=== PATIENT | male | born 1975 | race Two or more races ===

== ENCOUNTER 2019-04-03 18:42 | Emergency (ER) | payer SELFPAY ==
[2019-04-03 18:49] VITALS: BP 130/81; PULSE 78; TEMP 98.1; BMI 25.0
--- NOTE | 2019-04-03 19:52 | PDOC ---
History of Present Illness - General Chief Complaint: Abscess Boil Stated Complaint: SWELLING ON CHEST Time Seen by Provider: 04/03/19 19:11 - History of Present Illness Initial Comments: 04/03/19 19:52 43-year-old male with worsening abscess about the chest. He states the abscess is been there for years however it has gotten progressively painful and swollen. No systemic symptoms. Past History - Past Medical History Allergies/Adverse Reactions: Allergies Allergy/AdvReac Type Severity Reaction Status Date / Time No Known Allergies Allergy Verified 04/03/19 18:44 Home Medications: Ambulatory Orders Cephalexin [Keflex] 500 mg PO QID #40 capsule 04/03/19 Ibuprofen [Motrin -] 600 mg PO TID #30 tablet 04/03/19 Sulfamethoxazole/Trimethoprim [Bactrim Ds -] 1 tab PO BID #14 tablet 04/03/19 COPD: No Other medical history: DENIES - Immunization History Immunization Up to Date: No - Suicide/Smoking/Psychosocial Hx Smoking History: Current every day smoker Information on smoking cessation initiated: No Hx Alcohol Use: No Drug/Substance Use Hx: No Review of Systems - Review of Systems Constitutional: No: Fever Integumentary: Yes: See HPI, Lesions *Physical Exam - Vital Signs Last Vital Signs Temp Pulse Resp BP Pulse Ox 98.1 F 78 18 130/81 99 04/03/19 18:45 04/03/19 18:45 04/03/19 18:45 04/03/19 18:45 04/03/19 18:45 - Physical Exam Comments: 04/03/19 19:51 HEAD: NC/AT EYES: Conjuntiva clear MS: Full ROM in all joints without edema NEUROLOGIC: No gross sensory or motor deficits, NVID SKIN: Normal color and temperature there is a large fluctuant abscess in the middle of the chest with warmth tenderness and mild surrounding erythema. There is a solitary firm mobile lymph node at the right axilla. Medical Decision Making - Medical Decision Making 04/03/19 19:50 Under aseptic technique 6 mL of 1% lidocaine without epinephrine was introduced circumferentially around the abscess. After appropriate anesthesia the abscess was again prepped aseptically subcentimeter incision was made at the most fluctuant area the area was drained and deloculated and packed with iodoform. A dry sterile dressing was placed. This was tolerated well. Patient was given specific instructions on wound care and went to follow-up. *DC/Admit/Observation/Transfer Diagnosis at time of Disposition: Abscess - Discharge Dispostion Disposition: HOME Condition at time of disposition: Stable Decision to Admit order: No - Referrals Referrals: ON STAFF,NOT [Primary Care Provider] - Felix Kirk MD [Staff Physician] - - Patient Instructions Printed Discharge Instructions: DI for Incision and Drainage of a Skin Abscess Additional Instructions: Return to the emergency room in 48 hours for packing removal wound evaluation and further treatment. Please take the antibiotics as directed and finish the entire course of both antibiotics. Motrin was sent here pharmacy for pain one tablet 3 times a day with meals. Discontinue the medication if it bothers her stomach. Do not take any other anti-inflammatories such as Advil Motrin Aleve or ibuprofen while on the prescription strength Motrin. May also take Tylenol. Keep the area clean and dry for the next 48 hours and do not get it wet. Return to the emergency room sooner if problems develop. You also have the option of following up with general surgery in 1-2 days for further evaluation and treatment options. - Post Discharge Activity
== END 2019-04-03 20:03 | disposition home or self-care (01) ==
LOC: JERFT 18:42
PROC: 0J960ZZ Drainage of Chest Subcutaneous Tissue and Fascia, Open Approach (ICD-10-PCS; principal; 2019-04-03)
DX: L02.213 Cutaneous abscess of chest wall (principal)
CPT/HCPCS: 87070; 87076; 87205; 99282-25

== ENCOUNTER 2019-04-05 18:34 | Emergency (ER) | payer SELFPAY ==
--- NOTE | 2019-04-05 18:55 | PDOC ---
Rapid Medical Evaluation Chief Complaint: Revisit,Wound Recheck Time Seen by Provider: 04/05/19 18:53 Medical Evaluation: Allergies Allergy/AdvReac Type Severity Reaction Status Date / Time No Known Allergies Allergy Verified 04/03/19 18:44 04/05/19 18:54 I have performed a brief in-person evaluation of this patient. The patient presents with a chief complaint of:Follow-up for chest wall abscess. Patient seen 2 days ago for I&D. Denies fever, chills or pain Pertinent physical exam findings: A&O x 3 I have ordered the following: nothing The patient will proceed to the ED for further evaluation. 04/05/19 18:55 04/05/19 18:56 Discharge Disposition - Diagnosis Abscess - Discharge Dispostion Condition at time of disposition: Stable - Referrals - Patient Instructions - Post Discharge Activity
[2019-04-05 18:56] VITALS: BP 117/68; PULSE 70; TEMP 98.3; BMI 25.0
--- NOTE | 2019-04-05 19:26 | PDOC ---
Suture Removal/Wound Check HPI - History of Present Illness Chief Complaint: Revisit,Wound Recheck Stated Complaint: FOLLOW UP Time Seen by Provider: 04/05/19 18:53 History Source: Yes: Patient Exam Limitations: Yes: No Limitations Treated at: [facility] ED - Previous ED Treatment Type of procedure performed on last visit: Yes: I&D of Abscess Tetanus Immunization: Yes: Up to Date Antibiotics Prescribed: Yes (bactrim, keflex) Past History - Travel Traveled outside of the country in the last 30 days: No Close contact w/someone who was outside of country & ill: No - Past Medical History Allergies/Adverse Reactions: Allergies Allergy/AdvReac Type Severity Reaction Status Date / Time No Known Allergies Allergy Verified 04/05/19 19:06 Home Medications: Ambulatory Orders Cephalexin [Keflex] 500 mg PO QID #40 capsule 04/03/19 Ibuprofen [Motrin -] 600 mg PO TID #30 tablet 04/03/19 Sulfamethoxazole/Trimethoprim [Bactrim Ds -] 1 tab PO BID #14 tablet 04/03/19 COPD: No - Immunization History Immunization Up to Date: No - Suicide/Smoking/Psychosocial Hx Smoking History: Current every day smoker Number of Cigarettes Smoked Daily: 6 Information on smoking cessation initiated: No Hx Alcohol Use: No Drug/Substance Use Hx: No Suture Removal/Wound Check PE - Physical Exam Laceration/Wound Check Symptoms: reports: Improved Location of Laceration/Wound: right: Chest *Review of Systems - Review of Systems Constitutional: No: Chills, Fever, Weakness Integumentary: No: Erythema, Pruritus, Rash All Other Systems: Reviewed and Negative *Physical Exam - Vital Signs Last Vital Signs Temp Pulse Resp BP Pulse Ox 98.3 F 70 16 117/68 98 04/05/19 18:54 04/05/19 18:54 04/05/19 18:54 04/05/19 18:54 04/05/19 18:54 - Physical Exam General Appearance: Yes: Nourished, Appropriately Dressed. No: Apparent Distress Integumentary: positive: Normal Color, Dry, Warm, Other (1 cm incision to the R chest wall with no associated drainage or redness.) Neurologic: positive: Fully Oriented, Alert, Normal Mood/Affect, Normal Response Medical Decision Making - Medical Decision Making 04/05/19 19:11 The patient is a 43 y/o M who presents to the ED For a wound check. Pt had an I& D performed to his r chest wall two days ago in our ED. He states that he hasn' t taken the dressing off. Denies fevers, chills, purulent drainage. A/P: Wound check On exam packing in place to the R chest wall Packing removed. No further drainage noted No associated erythema or tenderness D/C home with instructions to continue abx. I discussed the physical exam findings, ancillary test results and final diagnoses with the patient. I answered all of the patient's questions. The patient was satisfied with the care received and felt comfortable with the discharge plan and treatment plan. The Patient agrees to follow up with the primary care physician/specialist within 24-72 hours. Return precautions were given. *DC/Admit/Observation/Transfer Diagnosis at time of Disposition: Abscess, Wound check, abscess - Discharge Dispostion Disposition: HOME Condition at time of disposition: Stable Decision to Admit order: No - Referrals Referrals: Kelvin Lund MD [Staff Physician] - - Patient Instructions Printed Discharge Instructions: DI for Incision and Drainage of a Skin Abscess Additional Instructions: You had your packing removed today The abscess is healing well Continue the antibiotics as previously prescribed Follow up with your primary care doctor Return to the ER for fever, drainage from the site, or if you have any changes in your symptoms - Post Discharge Activity Forms/Work/School Notes: Back to Work
== END 2019-04-05 19:35 | disposition home or self-care (01) ==
LOC: JERFT 18:34
DX: Z48.817 Encounter for surgical aftercare following surgery on the skin and subcutaneous tissue (principal); L02.213 Cutaneous abscess of chest wall
CPT/HCPCS: 99281-25

== ENCOUNTER 2021-08-07 15:28 | Observation (INO) | payer OTHER ==
[2021-08-07] MEDS ORDERED: SODIUM CHLORIDE 1,000 ML IV STA ×2 (16:22→20:24)
[2021-08-07] MEDS ORDERED: morphine CARPU-JECT 4 MG/1 ML DISP.SYRIN IVPUSH ONE (16:22)
[2021-08-07] MEDS ORDERED: morphine SULFATE 4 MG/ML VIAL ONE (16:34)
[2021-08-07 17:18] LABS: BASO % 0.7 % (0-2.0); EOS % 1.6 % (0-4.5); HEMATOCRIT 44.1 % (35.4-49); HEMOGLOBIN 15.5 GM/dL (11.7-16.9); MCH 31.9 pg (25.7-33.7); MCHC 35.1 g/dl (32.0-35.9); MEAN PLT VOLUME 9.3 fl (7.5-11.1); MONO % 7.9 % (3.8-10.2); NEUT % 66.8 % (42.8-82.8); PLATELET COUNT 185 10^3/uL (134-434); RBC 4.85 M/mm3 (4.00-5.60); RDW 13.3 % (11.9-15.9); WHITE BLOOD COUNT 5.8 K/mm3 (4.0-10.0)
[2021-08-07 17:46] LABS: CALCIUM 8.6 mg/dL (8.5-10.1)
[2021-08-07 17:47] LABS: ALBUMIN 3.9 g/dl (3.4-5.0); BLOOD UREA NITROGEN 20.1 mg/dL (7-18)
[2021-08-07 17:49] LABS: CREATININE 1.7 mg/dL (0.55-1.3)
[2021-08-07 17:51] LABS: BILIRUBIN,TOTAL 1.6 mg/dL (0.2-1)
[2021-08-07 17:52] LABS: TOT PROT 6.6 g/dl (6.4-8.2)
[2021-08-07 18:29] LABS: EPI CELLS 9 /uL (0-25.1); HYALINE CASTS 0 /uL (0-3.1); PH,URINE 5.5 (5.0-8.0); URINE APPEARANCE CLEAR; URINE BACTERIA 9 /uL (0-1359); URINE BILIRUBIN NEGATIVE (NEGATIVE); URINE COLOR YELLOW; URINE GLUCOSE (UA) NEGATIVE (NEGATIVE); URINE KETONE TRACE (NEGATIVE); URINE LEUK ESTERASE NEGATIVE (NEGATIVE); URINE NITRITE NEGATIVE (NEGATIVE); URINE PROTEIN NEGATIVE (NEGATIVE); URINE RBC 21 /uL (0-23.9); URINE WBC 14 /uL (0-25.8)
[2021-08-07] MEDS ORDERED: morphine CARPU-JECT 2 MG/1 ML DISP.SYRIN IVPUSH ONE (18:40)
[2021-08-07] MEDS ORDERED: MORPHINE SULFATE 2 MG/ML VIAL ONE (18:47)
[2021-08-07 19:09] LABS: URINE CRYSTALS MODERATE /hpf
[2021-08-07] MEDS ORDERED: HYDROmorphone HCL CARPU-JECT 2 MG/1 ML DISP.SYRIN IVPUSH ONE (20:24)
[2021-08-07] MEDS ORDERED: TAMSULOSIN HCL 0.4 MG CAP PO ONE (20:24)
[2021-08-07] MEDS ORDERED: ONDANSETRON 4 MG/2 ML VIAL IVPUSH ONE (20:24)
[2021-08-07] MEDS ORDERED: ONDANSETRON 4 MG/2 ML VIAL ONE (20:45)
[2021-08-07] MEDS ORDERED: TAMSULOSIN HCL 0.4 MG CAP ONE (20:45)
[2021-08-07] MEDS ORDERED: HYDROmorphone HCl 2 MG/ML VIAL ONE (20:45)
[2021-08-08] MEDS ORDERED: MORPHINE SULFATE 2 MG/ML VIAL IVPUSH ONE (01:14)
[2021-08-08] MEDS ORDERED: HEPARIN NA (PORCINE) 5,000 UNITS/ML 1ML VIAL SQ ONE (01:29)
[2021-08-08] MEDS ORDERED: SODIUM CHLORIDE 1,000 ML IV SCH (01:30)
[2021-08-08] MEDS ORDERED: MORPHINE SULFATE 2 MG/ML VIAL IVPUSH PRN (02:14)
[2021-08-08 03:03] VITALS: BMI 25.6
[2021-08-08 14:40] VITALS: BP 123/60; PULSE 69; TEMP 98.9
[2021-08-08 14:51] LABS: URIC ACID 5.9 mg/dL (2.6-7.2)
[2021-08-08 14:51] LABS: PHENCYCLIDINE,URINE NEGATIVE (NEGATIVE)
[2021-08-08 14:52] LABS: COCAINE, UR NEGATIVE (NEGATIVE); URINE BARBITURATES NEGATIVE (NEGATIVE)
[2021-08-08 14:53] LABS: METHADONE, UR NEGATIVE (NEGATIVE)
[2021-08-08 14:54] LABS: OPIATES, URI POSITIVE (NEGATIVE); URINE AMPHETAMINES NEGATIVE (NEGATIVE); URINE BENZODIAZEPINES NEGATIVE (NEGATIVE)
[2021-08-08] MEDS ORDERED: LACTATED RINGERS SOLUTION 1000 ML INFUS.BAG IV ONE (15:00)
[2021-08-08 15:17] LABS: EOS % 1.9 % (0-4.5); HEMATOCRIT 43.8 % (35.4-49); HEMOGLOBIN 15.4 GM/dL (11.7-16.9); LYMPH % 34.2 % (8-40); MCHC 35.2 g/dl (32.0-35.9); MEAN PLT VOLUME 8.9 fl (7.5-11.1); MONO % 9.1 % (3.8-10.2); NEUT % 53.8 % (42.8-82.8); PLATELET COUNT 187 10^3/uL (134-434); RBC 4.81 M/mm3 (4.00-5.60); RDW 13.2 % (11.9-15.9); WHITE BLOOD COUNT 5.5 K/mm3 (4.0-10.0)
[2021-08-08 15:49] LABS: CALCIUM 8.4 mg/dL (8.5-10.1)
[2021-08-08 15:50] LABS: ALBUMIN 3.8 g/dl (3.4-5.0); BLOOD UREA NITROGEN 12.8 mg/dL (7-18)
[2021-08-08 15:53] LABS: CREATININE 1.2 mg/dL (0.55-1.3); URIC ACID 4.3 mg/dL (2.6-7.2)
[2021-08-08 15:54] LABS: BILIRUBIN,TOTAL 0.9 mg/dL (0.2-1); TOT PROT 6.9 g/dl (6.4-8.2)
[2021-08-09] MEDS ORDERED: TAMSULOSIN HCL 0.4 MG CAP PO SCH (08:30)
== END 2021-08-08 17:50 | disposition home or self-care (01) ==
LOC: JER 15:28 → INTOOBSV 22:24 → JERBED 22:24 → J7W 08-08 02:43
PROVIDERS: ADMIT Internal Medicine; ATTEND Internal Medicine
PROC: 3E033NZ Introduction of Analgesics, Hypnotics, Sedatives into Peripheral Vein, Percutaneous Approach (ICD-10-PCS; principal; 2021-08-07)
PROC: 3E0337Z Introduction of Electrolytic and Water Balance Substance into Peripheral Vein, Percutaneous Approach (ICD-10-PCS; 2021-08-07)
PROC: 3E033GC Introduction of Other Therapeutic Substance into Peripheral Vein, Percutaneous Approach (ICD-10-PCS; 2021-08-07)
DX: N17.8 Other acute kidney failure (principal); N13.30 Unspecified hydronephrosis; N23 Unspecified renal colic; N20.0 Calculus of kidney; F17.210 Nicotine dependence, cigarettes, uncomplicated; F10.99 Alcohol use, unspecified with unspecified alcohol-induced disorder; F14.21 Cocaine dependence, in remission; Z79.1 Long term (current) use of non-steroidal anti-inflammatories (NSAID)
CPT/HCPCS: 36415; 74176-TC; 76775-TC; 76856-TC; 80053; 80307; 81003; 83036; 83735; 84300; 84550; 85025; 87086; 93005; 93010; 96361; 96374; 96375; 96376; 99285-25; C9803; G0378; U0003; U0005

== ENCOUNTER 2023-10-03 14:10 | Emergency (ER) | payer OTHER ==
[2023-10-03 14:40] VITALS: BP 145/90; PULSE 71; RESP 19; TEMP 98.4; BMI 25.8
[2023-10-03 17:39] LABS: BASO % 0.8 % (0-2.0); HEMATOCRIT 47.4 % (35.4-49); HEMOGLOBIN 16.1 GM/dL (11.7-16.9); LYMPH % 50.3 % (8-40); MCH 31.1 pg (25.7-33.7); MCHC 34.1 g/dl (32.0-35.9); MEAN CELL VOLUME 91.3 fl (80-96); MEAN PLT VOLUME 9.4 fl (7.5-11.1); MONO % 7.3 % (3.8-10.2); NEUT % 36.6 % (42.8-82.8); PLATELET COUNT 264 10^3/uL (134-434); RBC 5.19 M/mm3 (4.00-5.60); WHITE BLOOD COUNT 5.7 K/mm3 (4.0-10.0)
[2023-10-03 18:01] LABS: POTASSIUM 4.8 mmol/L (3.5-5.1)
[2023-10-03 18:03] LABS: CALCIUM 9.3 mg/dL (8.5-10.1)
[2023-10-03 18:04] LABS: ALBUMIN 4.2 g/dl (3.4-5.0); BLOOD UREA NITROGEN 11.2 mg/dL (7-18)
[2023-10-03 18:07] LABS: CREATININE 1.1 mg/dL (0.55-1.3)
[2023-10-03 18:09] LABS: BILIRUBIN,TOTAL 0.9 mg/dL (0.2-1); TOT PROT 7.2 g/dl (6.4-8.2)
== END 2023-10-03 19:27 | disposition home or self-care (01) ==
LOC: JER 14:10
DX: R42 Dizziness and giddiness (principal); Z20.822 Contact with and (suspected) exposure to COVID-19
CPT/HCPCS: 0241U-QW; 36415; 71045-TC-FY; 80053; 84484; 85025; 93005; 93010; 99285-25

== ENCOUNTER 2023-10-06 10:14 | Emergency (ER) | payer OTHER ==
[2023-10-06 10:19] VITALS: BP 134/84; PULSE 69; RESP 18; TEMP 97.8; BMI 25.8
== END 2023-10-06 13:08 | disposition home or self-care (01) ==
LOC: JER 10:14
DX: R42 Dizziness and giddiness (principal); R51.9 Headache, unspecified; R09.81 Nasal congestion; J32.9 Chronic sinusitis, unspecified; H93.93 Unspecified disorder of ear, bilateral
CPT/HCPCS: 70450-TC; 93005; 93010; 99284-25

== ENCOUNTER 2024-01-14 17:45 | Emergency (ER) | payer OTHER ==
[2024-01-14 17:56] VITALS: BP 123/70; PULSE 73; RESP 20; TEMP 98.4; BMI 24.2
[2024-01-14] MEDS: LIDOCAINE HCL 1%, 10 MG/ML (50 mL VIAL) INF ONE (18:17)
== END 2024-01-14 18:57 | disposition home or self-care (01) ==
LOC: JER 17:45 → JERFT 17:45
PROC: 0H95XZZ Drainage of Chest Skin, External Approach (ICD-10-PCS; principal; 2024-01-14)
DX: L02.213 Cutaneous abscess of chest wall (principal)
CPT/HCPCS: 87070; 87205; 99283-25